=== PATIENT | male | born 1945 | race Caucasian/White ===

== ENCOUNTER 2021-07-03 13:50 | Inpatient (IN) | payer OTHER ==
[~2021-07-03] VITALS: Ht 172.7 cm; Wt 78.0 kg
[2021-07-03] MEDS ORDERED: TURMERIC CURCU1 EACH PO (17:42)
[2021-07-03] MEDS ORDERED: ASPIRIN EC81 MG PO (17:42)
[2021-07-03] MEDS ORDERED: AVODART0.5 MG PO (17:43)
[2021-07-03] MEDS ORDERED: LOPRESSOR 25 MG25 MG PO (17:43)
[2021-07-03] MEDS ORDERED: NORVASC5 MG PO (17:44)
[2021-07-03] MEDS ORDERED: ACID REDUCER20 MG PO (17:44)
[2021-07-03] MEDS ORDERED: ALL DAY ALLERGY10 M2 PO (17:45)
[2021-07-03] MEDS ORDERED: FLONASE ALLER15.8 ML (17:45)
[2021-07-04 07:08] LABS: HEMOGLOBIN 15.9 gm/dl (14.0-17.5); RED BLOOD COUNT 4.99 M/UL (4.20-5.50)
[2021-07-04 07:28] LABS: BUN/CREATININE RATIO 19 (0-10)
[2021-07-05 06:25] LABS: HEMOGLOBIN 15.1 gm/dl (14.0-17.5); RED BLOOD COUNT 4.8 M/UL (4.20-5.50)
[2021-07-05 06:28] LABS: WHITE BLOOD COUNT 10.6 K/UL (4.5-11.0)
[2021-07-05 06:44] LABS: BUN/CREATININE RATIO 16 (0-10)
[2021-07-05] MEDS ORDERED: ATORVASTATIN CA20 MG PO (08:37)
[2021-07-05] MEDS ORDERED: NITROGLYCERIN0.4 MG SL (08:37)
[2021-07-05] MEDS ORDERED: ASPIRIN EC81 MG PO (08:37)
[2021-07-05] MEDS ORDERED: DOCUSATE SODIU100 MG PO (08:37)
[2021-07-05] MEDS ORDERED: BRILINTA 90 MG90 MG PO (08:37)
== END 2021-07-05 12:00 | disposition home or self-care (01) | DRG 247 ==
LOC: CCU 16:20
PROVIDERS: ADMIT Internal Medicine Cardiovascular Disease
PROC: 0270346 Dilation of Coronary Artery, One Artery, Bifurcation, with Drug-eluting Intraluminal Device, Percutaneous Approach (ICD-10-PCS; 2021-07-03)
PROC: 02C03ZZ Extirpation of Matter from Coronary Artery, One Artery, Percutaneous Approach (ICD-10-PCS; 2021-07-03)
PROC: 4A023N7 Measurement of Cardiac Sampling and Pressure, Left Heart, Percutaneous Approach (ICD-10-PCS; 2021-07-03)
PROC: B2111ZZ Fluoroscopy of Multiple Coronary Arteries using Low Osmolar Contrast (ICD-10-PCS; 2021-07-03)
PROC: B24BZZ4 Ultrasonography of Heart with Aorta, Transesophageal (ICD-10-PCS; principal; 2021-07-04)
DX: I21.09 ST elevation (STEMI) myocardial infarction involving other coronary artery of anterior wall (principal); I25.5 Ischemic cardiomyopathy; Z20.822 Contact with and (suspected) exposure to COVID-19; I73.9 Peripheral vascular disease, unspecified; N40.0 Benign prostatic hyperplasia without lower urinary tract symptoms; E78.5 Hyperlipidemia, unspecified; I10 Essential (primary) hypertension; K21.9 Gastro-esophageal reflux disease without esophagitis; I25.10 Atherosclerotic heart disease of native coronary artery without angina pectoris; I08.3 Combined rheumatic disorders of mitral, aortic and tricuspid valves; I25.2 Old myocardial infarction; Z95.5 Presence of coronary angioplasty implant and graft; Z79.01 Long term (current) use of anticoagulants; Z79.82 Long term (current) use of aspirin; Z90.49 Acquired absence of other specified parts of digestive tract; Z82.49 Family history of ischemic heart disease and other diseases of the circulatory system; Z87.891 Personal history of nicotine dependence; Z88.0 Allergy status to penicillin
CPT/HCPCS: ECHO; 36415; 80048; 80061; 82550; 82553; 83036; 83880; 84484; 85025; 85347; 92973; 93005; 93306; 99152; 99153; C1725; C1757; C1769; C1874; C1887; C1894; G0278; J0461; J1644; J2250; J2405; J3010; J3246; J7040; Q9965

== ENCOUNTER 2021-07-29 11:15 | Inpatient (IN) | payer OTHER ==
[~2021-07-29] VITALS: Ht 175.3 cm; Wt 79.8 kg
[~2021-07-29 11:15] MED LIST: ACID REDUCER20 MG PO; ALL DAY ALLERGY10 M2 PO; ASPIRIN EC81 MG PO; ATORVASTATIN CA20 MG PO; AVODART0.5 MG PO; BRILINTA 90 MG90 MG PO; DOCUSATE SODIU100 MG PO; FLONASE ALLER15.8 ML; LOPRESSOR 25 MG25 MG PO; NITROGLYCERIN0.4 MG SL; NORVASC5 MG PO; TURMERIC CURCU1 EACH PO
[2021-07-29 12:39] LABS: HEMOGLOBIN 16.2 gm/dl (14.0-17.5); RED BLOOD COUNT 5.11 M/UL (4.20-5.50); WHITE BLOOD COUNT 8.1 K/UL (4.5-11.0)
[2021-07-29 13:04] LABS: BUN/CREATININE RATIO 15 (0-10)
[2021-07-29] MEDS ORDERED: FLONASE 0.05% N16 GM (15:03)
[2021-07-29] MEDS ORDERED: ATORVASTATIN CA20 MG PO (15:04)
[2021-07-30 03:36] LABS: HEMOGLOBIN 14.9 gm/dl (14.0-17.5); RED BLOOD COUNT 4.76 M/UL (4.20-5.50); WHITE BLOOD COUNT 8.3 K/UL (4.5-11.0)
[2021-07-30 04:53] LABS: BUN/CREATININE RATIO 12 (0-10)
[2021-08-01 04:15] LABS: BUN/CREATININE RATIO 22 (0-10)
[2021-08-01 04:18] LABS: HEMOGLOBIN 14.5 gm/dl (14.0-17.5); RED BLOOD COUNT 4.78 M/UL (4.20-5.50); WHITE BLOOD COUNT 9.4 K/UL (4.5-11.0)
[2021-08-02] MEDS ORDERED: LISINOPRIL5 MG PO (11:04)
[2021-08-02] MEDS ORDERED: ELIQUIS 5 MG TAB5 MG PO (11:07)
--- NOTE | 2021-08-02 15:35 | NUR ---
[id number] WALTERS REGARDING ELIQUIS AND BRILINTA. PER DR WALTERS, PATIENT IS TO CONTINUE TAKING BRILINTA AND ASPIRIN, D/C ELIQUIS PRESCRIBED PER HOSPITALIST. [facility]CARD ELIQUIS PRESCRIPTION. PATIENT MADE AWARE TO TAKE BRILINTA AND ASPIRIN. PATIENT VERBALIZED UNDERSTANDING.
== END 2021-08-02 15:51 | disposition home or self-care (01) | DRG 273 ==
LOC: ER1 11:15 → PROG CARE 13:18 → CDU 13:18 → PROG CARE 16:39
PROVIDERS: Emergency Medicine; Physician Assistant; ADMIT Emergency Medicine
PROC: 02583ZZ Destruction of Conduction Mechanism, Percutaneous Approach (ICD-10-PCS; principal; 2021-08-01)
PROC: 4A027FZ Measurement of Cardiac Rhythm, Via Natural or Artificial Opening (ICD-10-PCS; 2021-08-01)
PROC: 4A0274Z Measurement of Cardiac Electrical Activity, Via Natural or Artificial Opening (ICD-10-PCS; 2021-08-01)
PROC: 02K83ZZ Map Conduction Mechanism, Percutaneous Approach (ICD-10-PCS; 2021-08-01)
PROC: B24BZZ4 Ultrasonography of Heart with Aorta, Transesophageal (ICD-10-PCS; 2021-08-01)
DX: I48.92 Unspecified atrial flutter (principal); I50.23 Acute on chronic systolic (congestive) heart failure; Z20.822 Contact with and (suspected) exposure to COVID-19; I21.4 Non-ST elevation (NSTEMI) myocardial infarction; I31.3 Pericardial effusion (noninflammatory); I25.10 Atherosclerotic heart disease of native coronary artery without angina pectoris; N40.0 Benign prostatic hyperplasia without lower urinary tract symptoms; E78.5 Hyperlipidemia, unspecified; I11.0 Hypertensive heart disease with heart failure; K21.9 Gastro-esophageal reflux disease without esophagitis; I08.3 Combined rheumatic disorders of mitral, aortic and tricuspid valves; I49.5 Sick sinus syndrome; I25.5 Ischemic cardiomyopathy; I25.2 Old myocardial infarction; Z95.5 Presence of coronary angioplasty implant and graft; Z79.82 Long term (current) use of aspirin; Z88.0 Allergy status to penicillin; Z90.49 Acquired absence of other specified parts of digestive tract; Z79.01 Long term (current) use of anticoagulants; Z82.49 Family history of ischemic heart disease and other diseases of the circulatory system; Z83.3 Family history of diabetes mellitus; Z87.891 Personal history of nicotine dependence
CPT/HCPCS: 36415; 71045; 80048; 80053; 82550; 82553; 83874; 83880; 84439; 84443; 84484; 85025; 85027; 85610; 85730; 93005; 93312; 93320; 93609; 93620; 99152; 99153; 99285; C1730; C1733; C1766; J1200; J1644; J1940; J2250; J3010; J7040; U0002

== ENCOUNTER → 2021-11-29 | Outpatient (CLI) | payer OTHER ==
[~2021-11-29] MED LIST changes: +ELIQUIS 5 MG TAB5 MG PO; +FLONASE 0.05% N16 GM; +LISINOPRIL5 MG PO
[2021-11-29 13:08] LABS: BUN/CREATININE RATIO 15 (0-10)
== END ==
LOC: LAB 12:09
PROVIDERS: Physician Assistant Surgical
DX: I50.9 Heart failure, unspecified (principal)
CPT/HCPCS: 36415; 80053; 80061

== ENCOUNTER → 2022-05-03 | Outpatient (CLI) | payer OTHER | LOC: HEART 5 09:19 | DX: I25.10 Atherosclerotic heart disease of native coronary artery without angina pectoris (principal); I25.5 Ischemic cardiomyopathy; I42.0 Dilated cardiomyopathy; I35.1 Nonrheumatic aortic (valve) insufficiency | CPT/HCPCS: 93306 ==